=== PATIENT | female | born 1960 | race Caucasian/White ===

== ENCOUNTER → 2016-10-01 | Day surgery (SDC) | payer OTHER ==
[~2016-10-01] MED LIST: CYMBALTA PO; LIPITOR20 MG PO; MOBIC15 MG PO; PRINIVIL20 M1 PO; VYVANSE30 MG PO; ZESTRIL10 M1 PO
--- NOTE | ~2016-10-01 | OR ---
Unit #: [id number] #: [id number] Patient: SIMONA BETTS [id number] [address] [place], [place] [address] [id number] O MR#: [id number] NAME: SIMONA BETTS ROOM: Date of Procedure: 10/01/2016 Admission Date: 10/01/2016 Surgeon: Toro Garzon M.D. : 1960 Attending Physician: Toro Garzon M.D. Primary Care Physician: Mundo Rosenberg M.D. OPERATIVE REPORT PREOPERATIVE DIAGNOSES Degenerative lumbar disk disease, lumbar spondylosis, back pain, radiculopathy. SECONDARY DIAGNOSES Cervical disk disease, neck pain, cervical radiculopathy. POSTOPERATIVE DIAGNOSES Degenerative lumbar disk disease, lumbar spondylosis, back pain, radiculopathy. PROCEDURES PERFORMED 1. Lumbar epidural steroid injection with intravenous sedation and fluoroscopic guidance for needle localization. 2. Cervical epidural steroid injection with fluoroscopic guidance for needle localization. INDICATIONS FOR PROCEDURE The patient is a 55-year-old female with previously mentioned diagnosis. She failed to settle with extensive attempts of conservative treatment. Workup demonstrated lumbar disk disease most significant nerve root impingement at L3-4 and L4-5. Milder, but still moderate abnormalities at C5-6 and C6-7. Plan is to trial of epidural steroid injections at both of these levels based on history, pathology, symptomatology, and failure with modalities. DESCRIPTION OF PROCEDURE The patient was placed in a seated position. Standard monitors were applied. 2 mg of Versed were given for sedation and anxiolysis, which were adequate. Vital signs remained stable. Sterile prep and drape then of the lumbar area was performed. The skin then at the L5-S1 level was localized with 1% lidocaine. An 18-gauge [employer] needle was then advanced via loss of resistance technique and fluoroscopic guidance in toward the epidural space. The patient did not complain of pain or paresthesia during needle advancement. After confirming proper positioning with fluoroscopy and radiographic contrast, 80 mg of Depo-Medrol and 4 mL of 0.125% bupivacaine were deposited. The patient tolerated this part of procedure well. A separate kit was used to sterilely prep and drape the patient's cervical spine. The skin then at the C6-7 level was localized with 1% lidocaine. An 18-gauge [employer] needle was then advanced via hanging drop technique and fluoroscopic guidance in toward the epidural Unit #: [id number] #: [id number] Patient: SIMONA BETTS. After confirming proper positioning with fluoroscopy and radiographic contrast, 80 mg of Depo-Medrol and 2 mL of 0.25% bupivacaine were deposited. The patient tolerated the procedure otherwise well and was discharged to recovery room in stable condition. Dictated by... Toro Garzon M.D. AFSANEH/daniela TD: 10/01/2016 22:43 JOB #: [id number] OPERATIVE REPORT X Toro Garzon MD X PROCEDURE OPERATIVE NOTE
== END | disposition home or self-care (01) ==
LOC: CCSC 08:53
DX: M51.16 Intervertebral disc disorders with radiculopathy, lumbar region (principal); M47.26 Other spondylosis with radiculopathy, lumbar region; M50.122 Cervical disc disorder at C5-C6 level with radiculopathy
CPT/HCPCS: J1040; J2250

== ENCOUNTER → 2016-10-24 | Day surgery (SDC) | payer OTHER ==
--- NOTE | ~2016-10-24 | OR ---
Unit #: [id number] #: [id number] Patient: SIMONA BETTS [id number] [address] [place], [place] [address] [id number] O MR#: [id number] NAME: SIMONA BETTS ROOM: Date of Procedure: 10/24/2016 Admission Date: 10/24/2016 Surgeon: Toro Garzon M.D. : 1960 Attending Physician: Toro Garzon M.D. Primary Care Physician: Mundo Rosenberg M.D. OPERATIVE REPORT PREOPERATIVE DIAGNOSES 1. Back pain, radiculopathy, degenerative disk disease, lumbar disk herniation. 2. Neck pain, cervical radiculopathy, degenerative cervical disk disease. POSTOPERATIVE DIAGNOSES 1. Back pain, radiculopathy, degenerative disk disease, lumbar disk herniation. 2. Neck pain, cervical radiculopathy, degenerative cervical disk disease. PROCEDURES PERFORMED 1. Lumbar epidural steroid injection with fluoroscopic guidance and intravenous sedation. 2. Cervical epidural steroid injection with fluoroscopic guidance. INDICATIONS FOR PROCEDURE The patient is a 55-year-old female with multiyear history of back pain without radiculopathy. It is worsened over the last several years and not settle with conservative treatment. Workup demonstrated degenerative disk disease at L4-L5 and L5-S1, left-sided disk herniation at L4-L5 and right side at L3-L4. She presents with neck and right greater than left upper extremity pain with paresthesia, numbness, disk osteophyte complex with left greater than right neural foraminal narrowing at C5-C6 and less severe disease at C6-C7. 3-1/2 weeks ago, epidural steroid injections done at the cervical spine and the lumbar spine. It resulted in significant improvement in her neck and upper extremity pain. She has had a partial return of paresthesia just recently. Low back did not respond overly well and initial injection was done at L5-S1. Plan at this point is to repeat injection at L4-L5 level to see that will better help her low back pain and repeat a second injection at her cervical spine level. I think with a very good first response of them all return of symptoms, she should do very well. If the back pain failed to settle, may need be treated more conservatively. I do not think she is a good surgical candidate. DESCRIPTION OF PROCEDURE The patient was placed in a seated position. Standard monitors were applied. 2 mg of Versed were given for sedation and anxiolysis, which were adequate. Vital signs remained stable. Sterile prep and drape then of the lumbar area was performed. The skin then at the L4-L5 level was localized with 1% lidocaine. An 18-gauge [employer] needle was then advanced Unit #: [id number] #: [id number] Patient: SIMONA BETTS via loss of resistance technique and fluoroscopic guidance in toward the epidural space. After confirming proper positioning with fluoroscopy and radiographic contrast, 80 mg of Depo-Medrol and 4 mL of 0.125% bupivacaine were deposited. The patient tolerated the procedure otherwise well. A separate kit was then used for the second procedure. Procedure #2: Cervical epidural steroid injection with fluoroscopic guidance. A separate kit was used to sterilely prep and drape the patient's cervical spine. The skin then at the C6-C7 level was localized with 1% lidocaine. An 18-gauge [employer] needle was then advanced via hanging drop technique and fluoroscopic guidance in toward the epidural space. The patient did not complain of any pain or paresthesia during needle advancement. After confirming proper positioning with fluoroscopy and radiographic contrast, 80 mg of Depo-Medrol and 2 mL of 0.25% bupivacaine were deposited. The patient tolerated the procedure otherwise well and was discharged to recovery room in stable condition. Dictated by... Mendez Schmidt/daniela TD: 10/25/2016 01:37 JOB #: [id number] OPERATIVE REPORT Page 1 of 1 X Toro Garzon MD X PROCEDURE OPERATIVE NOTE
== END | disposition home or self-care (01) ==
LOC: CCSC 08:06
DX: M51.16 Intervertebral disc disorders with radiculopathy, lumbar region (principal); M50.10 Cervical disc disorder with radiculopathy, unspecified cervical region
CPT/HCPCS: J1040; J2250

== ENCOUNTER → 2017-03-13 | Day surgery (SDC) | payer OTHER ==
--- NOTE | ~2017-03-13 | OR ---
Unit #: [id number] #: [id number] Patient: SIMONA BETTS [id number] [address] [address] [id number] O MR#: [id number] NAME: SIMONA BETTS ROOM: Date of Procedure: 03/13/2017 Admission Date: 03/13/2017 Surgeon: Toro Garzon M.D. : 1960 Attending Physician: Toro Garzon M.D. Primary Care Physician: Mundo Rosenberg M.D. OPERATIVE REPORT PREOPERATIVE DIAGNOSES Neck pain, cervical radiculopathy, degenerative cervical disk and spine disease. POSTOPERATIVE DIAGNOSES Neck pain, cervical radiculopathy, degenerative cervical disk and spine disease. PROCEDURE PERFORMED Cervical epidural steroid injection with intravenous sedation and fluoroscopic guidance for needle localization. INDICATIONS FOR PROCEDURE The patient is a 56-year-old female with return of neck and right greater than left upper extremity pain. She has significant disk osteophyte complex at C5-C6 level, some degenerative changes at C6-C7. She was last treated with epidural steroids a bit over 5 months ago. She did well for about 4-1/2 months and had resurgence of pain in the same distribution. She has fairly significant degenerative change at that level. She also has been treated with a lumbar epidural steroid injection and he continues to do well following the last injection 5 months ago and continued to exercise. DESCRIPTION OF PROCEDURE The patient was placed in a seated position. Standard monitors were applied. 2 mg of Versed were given for sedation. Vital signs remained stable. Sterile prep and drape then of the cervical area was performed. The skin at the C6-C7 level was localized with 1% lidocaine. An 18-gauge [employer] needle was then advanced via hanging drop technique and fluoroscopic guidance in toward the epidural space. After confirming proper positioning with fluoroscopy and radiographic contrast, 80 mg of Depo-Medrol and 2 mL of 0.125% bupivacaine were deposited. The patient tolerated the procedure otherwise well and was discharged to the recovery room in stable condition. Dictated by... Toro Garzon M.D. LHP/modl Unit #: [id number] #: [id number] Patient: CASSANDRA BETTSHUNTER Calloway TD: 03/13/2017 15:07 JOB #: [id number] OPERATIVE REPORT Page 1 of 1 X Toro Garzon MD X PROCEDURE OPERATIVE NOTE
== END | disposition home or self-care (01) ==
LOC: CCSC 07:39
DX: M50.123 Cervical disc disorder at C6-C7 level with radiculopathy (principal); Z79.1 Long term (current) use of non-steroidal anti-inflammatories (NSAID); Z79.899 Other long term (current) drug therapy
CPT/HCPCS: J1040; J2250